=== PATIENT | female | born 1985 | race Two or more races ===

== ENCOUNTER 2022-10-12 14:42 | Emergency (ER) | payer MEDICAID, OTHER ==
[~2022-10-12] VITALS: Ht 162.6 cm; Wt 79.7 kg
[2022-10-12 14:42] VITALS: BP 101/68; PULSE 94; RESP 18; O2SAT 97
== END 2022-10-12 18:40 | disposition left against medical advice (07) ==
LOC: ER 14:42
DX: R50.9 Fever, unspecified (principal); R05.9 Cough, unspecified; R11.2 Nausea with vomiting, unspecified; Z53.21 Procedure and treatment not carried out due to patient leaving prior to being seen by health care provider
CPT/HCPCS: 81002

== ENCOUNTER 2023-06-11 19:57 | Emergency (ER) | payer MEDICAID, OTHER ==
[~2023-06-11] VITALS: Ht 162.6 cm; Wt 80.0 kg
[2023-06-11] MEDS ORDERED: CLIN150C18 PO (22:29)
[2023-06-11 23:01] VITALS: BP 129/78; PULSE 72; RESP 18; TEMP 98
[2023-06-11 23:03] VITALS: O2SAT 100
[2023-06-11] MEDS: BENZOCAINE (DENTAL) 20 % SPRAY 60ML MT ONE (23:10)
== END 2023-06-11 23:15 | disposition home or self-care (01) ==
LOC: ER 19:57
DX: K08.89 Other specified disorders of teeth and supporting structures (principal)